=== PATIENT | female | born 1975 | race Caucasian/White ===

== ENCOUNTER 2018-02-25 08:55 | Day surgery (SDC) | payer OTHER ==
--- NOTE | 2018-02-21 09:20 | HP ---
AMENDED REPORT NOW INCLUDES COSIGNER DESIGNATION - ESIGNED BEFORE ADJUSTMENTS HISTORY AND PHYSICAL: DATE OF ADMISSION: 02/25/18 DATE OF SURGERY: 02/25/18 DATE OF HISTORY AND PHYSICAL: 02/17/18 SURGEON: Elaina Belle MD * (DICTATED BY PARISA HERZOG) PROCEDURE: Left index finger flexor tenosynovectomy. Cultures including fungal. CHIEF COMPLAINT: Left index finger swelling. HISTORY OF PRESENT ILLNESS: Linda is here for followup evaluation of her index finger MRI of her left side. She states that she is doing well. She still complains of the same pain and swelling that she did at her previous appointment. She is still able to do her job. She denies any numbness or tingling. No fevers or chills. She also denies any history of DVT for her self or in her family. PAST MEDICAL HISTORY: Includes psoriasis. PAST SURGICAL HISTORY: Tympanic membrane tubes. MEDICATIONS: 1. Ibuprofen. 2. Tylenol. ALLERGIES: No known drug allergies. FAMILY MEDICAL HISTORY: Mother and maternal grandmother had strokes. Sister and father have hypertension. Paternal grandfather had an AR. Brother had a brain aneurysm. SOCIAL HISTORY: She denies any tobacco use, alcohol use, or illicit drug use. REVIEW OF SYSTEMS: She endorses her presenting complaint as outlined in the HPI. Otherwise, she endorses depression and the ability to walk a flight of stairs or a city block without stop due to chest pain or shortness of breath. She denies any history of DVT or PE. Otherwise, a 12-point system review was negative. PHYSICAL EXAMINATION GENERAL: Well-nourished, well-developed, 42-year-old female in no acute distress, alert and oriented x3 with no gross neurologic deficiencies. She is ambulating without a limp. Muscle bulk and tone is symmetrical in upper and lower extremities. VITAL SIGNS: Height 64 inches. Pulse 76, blood pressure 102/60, respirations 12, temperature 98.2. Pain level is 0. HEENT: Normocephalic, atraumatic. Pupils equally round and reactive to light. Extraocular movements are intact. NECK: Supple. No palpable cervical lymph nodes. Thyroid is smooth and nontender. PULMONARY: Lungs clear to auscultation bilaterally with no wheezes, rales, or rhonchi. CARDIAC: Regular rate and rhythm. No murmurs, rubs, or gallops. No pedal edema. EXTREMITIES: Left upper extremity, she has fusiform swelling of her index finger. No erythema. She has good extension. She cannot flex the finger into a fist. Her skin is intact. NEUROLOGIC: Just 2+ radial pulse. Sensation is grossly intact to light touch distally. STUDIES: MRI previously obtained shows flexor synovitis of the index finger, which goes the entire length of her finger. IMPRESSION: Left index finger tenosynovitis possibly due to psoriatic arthritis , most likely due to a fungal infection. PLAN: Linda is scheduled to undergo left index finger flexor tenosynovectomy. Cultures including fungal with Dr. Elaina Belle on 02/25/18. She will return 7 to 10 days postop for followup and suture removal. Prescription for pain medication will be prescribed to the patient's pharmacy of record for postoperative pain medication. An I-STOP will be checked prior to sending this script. All questions were answered today. PARISA HERZOG [id number]/[facility] #: [id number] HOOD
[~2018-02-25 08:55] MED LIST: Buffered Lidocaine 0.9% SYRIN* 5 ML/SYR SYRINGE INTRADERM ONE
[2018-02-25] MEDS ORDERED: fentaNYL* 50 MCG/ML 5 ML VIAL (250 MCG VIAL) ONE (09:45)
[2018-02-25] MEDS ORDERED: Midazolam* 1 MG/ML 2 ML VIAL (2 MG) ONE (09:45)
[2018-02-25] MEDS ORDERED: Lidocaine 1% INJ* 10 MG/ML 30 ML SDV ONE (10:01)
[2018-02-25] MEDS ORDERED: Ondansetron ODT TAB* 4 MG ONE (11:13)
[2018-02-25 11:46] VITALS: BP 104/55
--- NOTE | 2018-02-26 03:52 | OP ---
DATE OF OPERATION: 02/25/18 [facility] DATE OF : 71 SURGEON: Dr. Belle SOURCER: PARISA Swenson ANESTHESIA: Local MAC. PRE-OP DIAGNOSIS: Flexor tenosynovitis of the left index finger. POST-OP DIAGNOSIS: Flexor tenosynovitis of the left index finger. OPERATIVE PROCEDURE: Flexor tenosynovectomy of the left index finger. ESTIMATED BLOOD LOSS: Zero. TOURNIQUET TIME: About 25 minutes. INDICATIONS FOR PROCEDURE: Linda is a 42-year-old female who has had several months of swelling of the left index finger. She has failed to improve with conservative measures including Medrol Dosepak. She has an MRI, which shows a flexor tenosynovitis of the left index finger. She presents for flexor tenosynovectomy. DESCRIPTION OF PROCEDURE: The patient was brought to the operating room, given a sedation anesthetic, and a local infiltration of a total of 15 cc of 1% plain lidocaine in the palm of her left hand. The skin of left hand and forearm were prepped and draped in the usual sterile fashion. The hand and forearm were exsanguinated and the tourniquet elevated to 250 mmHg. Luis incisions were made along the length of the index and into the mid aspect of the palm. The flexor tendon sheath was incised in several areas preserving the A2 and A4 pulleys. There was a very sarthak synovitis mainly lining the flexor tendon sheath and somewhat surrounding the flexor tendon themselves. The tendons were in good condition. The tenosynovitis was debrided thoroughly all the way to the carpal tunnel and into the DIP joint of the finger. Cultures including aerobic and anaerobic and fungal were obtained and tissue was sent for pathology and culture. The wound was copiously irrigated with saline and the skin edges were reapproximated with 4-0 nylon suture. Wound was dressed with Xeroform, 4x4, Webril, and a Coban. The patient tolerated the procedure well and was brought to the recovery room in good condition. [id number]/[facility] #: [id number] MTDD
== END 2018-02-25 11:37 | disposition home or self-care (01) ==
LOC: OREAST 08:55
PROVIDERS: ATTEND Orthopaedic Surgery
DX: M65.842 Other synovitis and tenosynovitis, left hand (principal); R00.2 Palpitations; J45.909 Unspecified asthma, uncomplicated; F41.8 Other specified anxiety disorders; M25.50 Pain in unspecified joint
CPT/HCPCS: 81025; 87070; 87073; 87102; 87205; 88304; A9270-GY; J2250; J3010